=== PATIENT | male | born 1975 | race Caucasian/White ===

== ENCOUNTER 2018-02-15 10:00 | Emergency (ER) | payer OTHER ==
[~2018-02-15] VITALS: Ht 170.2 cm; Wt 103.7 kg
[~2018-02-15 10:00] MED LIST: ASPIR-LOW81 M1 PO; NOHOMEMEDS
[2018-02-15] MEDS ORDERED: MOTRIN800 MG PO (12:00)
[2018-02-15] MEDS ORDERED: FLEXERIL10 MG PO (12:00)
[2018-02-15 12:13] VITALS: BP 150/102
== END 2018-02-15 12:14 | disposition home or self-care (01) ==
LOC: EME 10:00
DX: S29.012A Strain of muscle and tendon of back wall of thorax, initial encounter (principal); X50.0XXA Overexertion from strenuous movement or load, initial encounter; G89.29 Other chronic pain; F17.200 Nicotine dependence, unspecified, uncomplicated; Z88.0 Allergy status to penicillin
CPT/HCPCS: 71046; 99281; 99283; J1885

== ENCOUNTER 2018-05-03 12:42 | Emergency (ER) | payer OTHER ==
[~2018-05-03] VITALS: Ht 170.2 cm; Wt 106.5 kg
[~2018-05-03 12:42] MED LIST changes: +FLEXERIL10 MG PO; +MOTRIN800 MG PO
[2018-05-03 12:47] VITALS: BP 188/114
[2018-05-03 13:11] LABS: APPEARANCE CLEAR ((CLEAR)); BILIRUBIN NEGATIVE; BLOOD SMALL; COLOR YELLOW ((YELLOW)); GLUCOSE (STRIP) NEGATIVE; KETONES NEGATIVE; LEUKOCYTES NEGATIVE; NITRITE NEGATIVE; PROTEIN (STRIP) NEGATIVE; SPECIFIC GRAVITY 1.017 (1.000-1.030); UROBILINOGEN 0.2 MG/DL (0.2-1.0)
[2018-05-03 13:19] LABS: BACTERIA NONE SEEN /HPF; EPITHELIAL CELLS NONE SEEN /HPF; MUCUS TRACE /LPF; UCUL ADDED? NO; WHITE BLOOD CELLS 0-5 /HPF (0-5)
[2018-05-03 13:26] LABS: HEMATOCRIT 39.1 % (38.0-50.0); HEMOGLOBIN 13.5 G/DL (12.5-16.6); MCH 30.9 PG (29.0-34.0); MCHC 34.5 G/DL (30.0-36.0); MCV 89.5 FL (86-99); PLATELET COUNT 193 K/uL (156-360); RBC DIS.WIDTH-CV 12.6 % (11.8-14.6); RBC DIS.WIDTH-SD 41.1 % (39-53); RED BLOOD COUNT 4.37 M/uL (4.00-5.50); WHITE BLOOD COUNT 6.2 K/uL (4.1-10.2)
[2018-05-03 13:35] LABS: ALBUMIN 4.1 g/dL (3.2-4.8)
[2018-05-03 13:36] LABS: CHLORIDE 105 mEq/L (99-109); POTASSIUM 3.9 mEq/L (3.7-5.4); SODIUM 142 mEq/L (136-147)
[2018-05-03 13:38] LABS: GLUCOSE 124 mg/dL (70-99)
[2018-05-03 13:40] LABS: TOTAL BILIRUBIN 0.4 mg/dL (0.0-1.0)
[2018-05-03 13:41] LABS: ALKALINE PHOSPHATASE 108 IU/L (3-129)
[2018-05-03 13:42] LABS: GFR ESTIMATE (CALCULATED) > 59 mL/min/ (58.99-99999)
[2018-05-03 13:43] LABS: AST (GOT) 31 IU/L (2-34); UREA NITROGEN (BUN) 18 mg/dL (9-23)
[2018-05-03 13:45] LABS: ALT (GPT) 48 IU/L (3-49)
[2018-05-03] MEDS ORDERED: MOTRIN800 MG PO (14:31)
[2018-05-03] MEDS ORDERED: PERCOCET 5/31 TABLET PO (14:31)
[2018-05-03] MEDS ORDERED: FLOMAX0.4 MG PO (14:31)
[2018-05-03] MEDS ORDERED: ZOFRAN4 MG PO (14:31)
[2018-05-06] MEDS ORDERED: FLOMAX0.4 MG PO (15:43)
[2018-05-06] MEDS ORDERED: PRINIVIL10 MG PO (15:43)
[2018-05-06] MEDS ORDERED: ZOFRAN4 MG PO (15:44)
[2018-05-06] MEDS ORDERED: PERCOCET 5/31 TABLET PO (15:44)
[2018-05-06] MEDS ORDERED: MOTRIN800 MG PO (15:45)
[2018-05-06] MEDS ORDERED: METHADONE H5 MG/5 ML PO (15:46)
== END 2018-05-03 14:45 | disposition home or self-care (01) ==
LOC: EME 12:42
DX: R10.32 Left lower quadrant pain (principal); N20.0 Calculus of kidney; R31.9 Hematuria, unspecified; S22.43XD Multiple fractures of ribs, bilateral, subsequent encounter for fracture with routine healing; X58.XXXD Exposure to other specified factors, subsequent encounter; Z87.442 Personal history of urinary calculi; Z79.82 Long term (current) use of aspirin; Z88.0 Allergy status to penicillin; F17.200 Nicotine dependence, unspecified, uncomplicated
CPT/HCPCS: 71101; 80053; 81003; 85027; 99281; 99285; J1885

== ENCOUNTER 2018-05-07 10:22 | Day surgery (SDC) | payer OTHER ==
[~2018-05-07] VITALS: Ht 170.2 cm; Wt 108.9 kg
[~2018-05-07 10:22] MED LIST changes: +FLOMAX0.4 MG PO; +METHADONE H5 MG/5 ML PO; +PERCOCET 5/31 TABLET PO; +PRINIVIL10 MG PO; +ZOFRAN4 MG PO
[2018-05-07 10:40] VITALS: BP 141/92
[2018-05-07 14:23] VITALS: BP 130/81
[2018-05-07 15:10] VITALS: BP 130/80
== END 2018-05-07 16:12 | disposition home or self-care (01) ==
LOC: SDC 10:22
DX: N13.2 Hydronephrosis with renal and ureteral calculous obstruction (principal); N20.2 Calculus of kidney with calculus of ureter; I10 Essential (primary) hypertension; F11.20 Opioid dependence, uncomplicated; F17.210 Nicotine dependence, cigarettes, uncomplicated; Z88.0 Allergy status to penicillin; Z79.82 Long term (current) use of aspirin
CPT/HCPCS: 74018; 93005; C2625; J0690; J1100; J1580; J2405; J3010